=== PATIENT | female | born 1945 | race Caucasian/White ===

== ENCOUNTER 2016-05-16 12:03 | Emergency (ER) | payer OTHER ==
--- NOTE | 2016-05-16 14:17 | ED CLINICAL REPORT ---
Clinical Report - Physicians/Mid Levels [facility] [address] [place] [address] 05/16/2016 12:06 Patient: WATSON INGRAM Time Seen: 12:43. Arrived- By private vehicle. Historian- patient. CPT: ER phys charges level 3 (#804034). HISTORY OF PRESENT ILLNESS Chief Complaint: SKIN RASH and (around eyes.). 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 She did not sustain an injury. She has had eye discomfort and eye irritation. She has had eye discharge (tearing a lot). It is described as itchy. It has been located on the face (right and left periorbital). No cause has been identified. Similar symptoms previously: Recent medical care: Not recently seen/assessed. REVIEW OF SYSTEMS No fever, chills, sore throat, cough or difficulty breathing. No hoarseness, lump in throat, enlarged lymph nodes, chest pain or abdominal pain. No nausea, diarrhea, difficulty with urination or joint pain. The patient has had eye irritation. All systems otherwise negative, except as recorded above. PAST HISTORY Impetigo. Cancer. . ADDITIONAL SURGERIES: Back Surgery. Carpal Tunnel Surgery. Dilatation & Curettage. Knee Surgery. Tubal Ligation. Medications: None. Allergies: Penicillins. SOCIAL HISTORY Light tobacco smoker (cigarette)- less than 1/2 a pack per day. Occasional alcohol use. History of occasional drug use: marijuana. ADDITIONAL NOTES The nursing notes have been reviewed. PHYSICAL EXAM Vital Signs: 05/16/2016 12:17 BP: 185/82. HR: 73. RR: 20. O2 saturation: 98%. Temp: 98.3 F. Pain level now: 5/10. Appearance: Alert. No acute distress. Eyes: Pupils equal, round and reactive to light. Rt Eye: Eyelid erythema. Lt Eye: Eyelid erythema. ENT: Ears normal. Nose normal. Pharynx normal. Neck: Neck supple. CVS: Normal heart rate and rhythm. Heart sounds normal. Respiratory: No respiratory distress. Breath sounds normal. Chest nontender. No wheezes. Abdomen: Nontender. Skin: Skin warm. Normal skin color. No tender indurated area. No cellulitis. The rash is erythematous. Rash present on the face (periorbital over both eyes symmetrically. Scaly dry skin that is erythematous). Extremities: Normal external inspection. Extremities nontender. Neuro: Oriented X 3. PROGRESS AND PROCEDURES Course of Care: Rash most consistent with a contact dermatitis. Patient/family counseled. Disposition: Discharged. Condition: stable. CLINICAL IMPRESSION Moderate allergic and irritative contact dermatitis (unknown). INSTRUCTIONS Warnings: Further evaluation is necessary. GENERAL WARNINGS: Return or contact your physician immediately if your condition worsens or changes unexpectedly, if not improving as expected, or if other problems arise. Prescription Medications: Hydrocortisone 2.5% ointment: apply to affected areas four times daily as needed for itching or rash, until symptoms improve. Dispense thirty (30) grams. No refills. OTC Medications: Benadryl (available over the counter): take according to label instructions. Follow-up: Follow up with your doctor in one week. Call for an appointment. (Electronically signed by Thad King MD 05/19/2016 10:28)
--- NOTE | 2016-05-16 14:17 | ED CLINICAL REPORT ---
Clinical Report - Physicians/Mid Levels [facility] [address] [place] [address] 05/16/2016 12:06 Patient: WATSON INGRAM Time Seen: 12:43. Arrived- By private vehicle. Historian- patient. CPT: ER phys charges level 3 (#[id number]). HISTORY OF PRESENT ILLNESS Chief Complaint: SKIN RASH and (around eyes.). 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 She did not sustain an injury. She has had eye discomfort and eye irritation. She has had eye discharge (tearing a lot). It is described as itchy. It has been located on the face (right and left periorbital). No cause has been identified. Similar symptoms previously: Recent medical care: Not recently seen/assessed. REVIEW OF SYSTEMS No fever, chills, sore throat, cough or difficulty breathing. No hoarseness, lump in throat, enlarged lymph nodes, chest pain or abdominal pain. No nausea, diarrhea, difficulty with urination or joint pain. The patient has had eye irritation. All systems otherwise negative, except as recorded above. PAST HISTORY Impetigo. Cancer. . ADDITIONAL SURGERIES: Back Surgery. Carpal Tunnel Surgery. Dilatation & Curettage. Knee Surgery. Tubal Ligation. Medications: None. Allergies: Penicillins. SOCIAL HISTORY Light tobacco smoker (cigarette)- less than 1/2 a pack per day. Occasional alcohol use. History of occasional drug use: marijuana. ADDITIONAL NOTES The nursing notes have been reviewed. PHYSICAL EXAM Vital Signs: 05/16/2016 12:17 BP: 185/82. HR: 73. RR: 20. O2 saturation: 98%. Temp: 98.3 F. Pain level now: 5/10. Appearance: Alert. No acute distress. Eyes: Pupils equal, round and reactive to light. Rt Eye: Eyelid erythema. Lt Eye: Eyelid erythema. ENT: Ears normal. Nose normal. Pharynx normal. Neck: Neck supple. CVS: Normal heart rate and rhythm. Heart sounds normal. Respiratory: No respiratory distress. Breath sounds normal. Chest nontender. No wheezes. Abdomen: Nontender. Skin: Skin warm. Normal skin color. No tender indurated area. No cellulitis. The rash is erythematous. Rash present on the face (periorbital over both eyes symmetrically. Scaly dry skin that is erythematous). Extremities: Normal external inspection. Extremities nontender. Neuro: Oriented X 3. PROGRESS AND PROCEDURES Course of Care: Rash most consistent with a contact dermatitis. Patient/family counseled. Disposition: Discharged. Condition: stable. CLINICAL IMPRESSION Moderate allergic and irritative contact dermatitis (unknown). INSTRUCTIONS Warnings: Further evaluation is necessary. GENERAL WARNINGS: Return or contact your physician immediately if your condition worsens or changes unexpectedly, if not improving as expected, or if other problems arise. Prescription Medications: Hydrocortisone 2.5% ointment: apply to affected areas four times daily as needed for itching or rash, until symptoms improve. Dispense thirty (30) grams. No refills. OTC Medications: Benadryl (available over the counter): take according to label instructions. Follow-up: Follow up with your doctor in one week. Call for an appointment. (Electronically signed by Thad King MD 05/19/2016 10:28)
--- NOTE | 2016-05-16 14:17 | ED NURSING NOTES ---
Clinical Report - Nurses [facility] [address] [place] [address] 05/16/2016 12:06 Patient: WATSON INGRAM TRIAGE Triage time 12:17. Acuity: LEVEL 3. Chief Complaint: REDNESS TO RIGHT EYE. REDNESS TO LEFT EYE. (both eyes itchy.). Alert. No acute distress. SEPSIS SCREEN: Sepsis Screen: negative. Negative (no infection suspected/documented). --12:28 Natacha Agudelo R.N. 12:17 05/16/16. BP: 185/82. HR: 73. RR: 20. O2 saturation: 98% on room air. Temp: 98.3 F. Pain level now: 07/16. --12:28 Natacha Agudelo R.N. Weight: 86.1 kg stated. Height/Length: 69 inches Per Patient. BMI: 28.1. --12:27 Natacha Agudelo R.N. Medications None. --14:41 Natacha Agudelo R.N. Medication/allergy information source: the patient. --12:28 Natacha Agudelo R.N. Allergies Penicillins. --14:41 Natacha Agudelo R.N. History Arrived by private vehicle. Historian: patient. Primary physician ( in [facility]). Onset. (2 weeks ago). She did not sustain an injury. She has had eye discomfort and eye irritation. She has had eye discharge (tearing a lot). 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 PAST MEDICAL HX: Immunizations: status is unknown. The patient is post-menopausal. SOCIAL HX: Light tobacco smoker (cigarette)- less than 1/2 a pack per day. Occasional alcohol use. History of drug use: marijuana. FALL RISK ASSESSMENT: Fall risk assessment completed. No fall risk identified. NUTRITIONAL RISK ASSESSMENT: The nutritional risk assessment revealed no deficiencies. FUNCTIONAL ASSESSMENT: Functional assessment: no impairments noted. LEARNING NEEDS ASSESSMENT: The learning needs assessment revealed no barriers. SKIN INTEGRITY ASSESSMENT: Skin integrity risk assessment completed. No skin integrity risk identified. --12:28 Natacha Agudelo R.N. PROBLEMS: Impetigo. Cancer. --12:25 Natacha Agudelo R.N. ADDITIONAL SURGERIES: Back Surgery. Carpal Tunnel Surgery. Dilatation & Curettage. Knee Surgery. Tubal Ligation. --12:25 Natacha Agudelo R.N. Interventions ID band on patient. To room. --12:28 Natacha Agudelo R.N. PHYSICAL ASSESSMENT Ambulatory to room. Patient gowned. GENERAL / NEURO / PSYCH: Alert. Appears in pain and anxious. HEENT: ( eyes red and itchy). RESPIRATORY: Respirations not labored. CVS: Capillary refill less than 2 seconds. SKIN: Skin is warm and dry. ( lower lids red and swollen). --12:29 Natacha Agudelo R.N. NURSING PROGRESS NOTES Patient gowned. Head of bed elevated. Two patient identifiers checked. Call light placed in reach. Side rails up x 1. Bed placed in lowest position. Brakes of bed on. Patient ready for evaluation. --12:29 Natacha Agudelo R.N. DISPOSITION / DISCHARGE 14:30. Condition at departure: improved. No learning barriers present. Discharge instructions provided and reviewed with the patient. Reviewed medication(s) side effects, precautions, dosing and course information. Prescription(s) given to the patient. Patient verbalized understanding. Written instructions provided in Japanese. The patient was discharged home and accompanied by cash specialist. She left the Emergency Department ambulatory and via private vehicle. Contracts Intern driving. Medication list reviewed and validated. --14:41 Natacha Agudelo R.N. 14:38 05/16/16. BP: 175/83. HR: 76. RR: 20. O2 saturation: 100%. Temp: deferred. Pain level now: 03/18. 12:17 05/16/16. BP: 185/82. HR: 73. RR: 20. O2 saturation: 98% on room air. Temp: 98.3 F. Pain level now: 07/16. --14:41 Natacha Agudelo R.N. Locked/Released at 05/16/2016 14:42 by Natacha Agudelo R.N.
--- NOTE | 2016-05-16 14:17 | ED NURSING NOTES ---
Clinical Report - Nurses [facility] [address] [place] [address] 05/16/2016 12:06 Patient: WATSON INGRAM TRIAGE Triage time 12:17. Acuity: LEVEL 3. Chief Complaint: REDNESS TO RIGHT EYE. REDNESS TO LEFT EYE. (both eyes itchy.). Alert. No acute distress. SEPSIS SCREEN: Sepsis Screen: negative. Negative (no infection suspected/documented). --12:28 Natacha Agudelo R.N. 12:17 05/16/16. BP: 185/82. HR: 73. RR: 20. O2 saturation: 98% on room air. Temp: 98.3 F. Pain level now: 07/16. --12:28 Natacha Agudelo R.N. Weight: 86.1 kg stated. Height/Length: 69 inches Per Patient. BMI: 28.1. --12:27 Natacha Agudelo R.N. Medications None. --14:41 Natacha Agudelo R.N. Medication/allergy information source: the patient. --12:28 Natacha Agudelo R.N. Allergies Penicillins. --14:41 Natacha Agudelo R.N. History Arrived by private vehicle. Historian: patient. Primary physician ( in [facility]). Onset. (2 weeks ago). She did not sustain an injury. She has had eye discomfort and eye irritation. She has had eye discharge (tearing a lot). 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 PAST MEDICAL HX: Immunizations: status is unknown. The patient is post-menopausal. SOCIAL HX: Light tobacco smoker (cigarette)- less than 1/2 a pack per day. Occasional alcohol use. History of drug use: marijuana. FALL RISK ASSESSMENT: Fall risk assessment completed. No fall risk identified. NUTRITIONAL RISK ASSESSMENT: The nutritional risk assessment revealed no deficiencies. FUNCTIONAL ASSESSMENT: Functional assessment: no impairments noted. LEARNING NEEDS ASSESSMENT: The learning needs assessment revealed no barriers. SKIN INTEGRITY ASSESSMENT: Skin integrity risk assessment completed. No skin integrity risk identified. --12:28 Natacha Agudelo R.N. PROBLEMS: Impetigo. Cancer. --12:25 Natacha Agudelo R.N. ADDITIONAL SURGERIES: Back Surgery. Carpal Tunnel Surgery. Dilatation & Curettage. Knee Surgery. Tubal Ligation. --12:25 Natacha Agudelo R.N. Interventions ID band on patient. To room. --12:28 Natacha Agudelo R.N. PHYSICAL ASSESSMENT Ambulatory to room. Patient gowned. GENERAL / NEURO / PSYCH: Alert. Appears in pain and anxious. HEENT: ( eyes red and itchy). RESPIRATORY: Respirations not labored. CVS: Capillary refill less than 2 seconds. SKIN: Skin is warm and dry. ( lower lids red and swollen). --12:29 Natacha Agudelo R.N. NURSING PROGRESS NOTES Patient gowned. Head of bed elevated. Two patient identifiers checked. Call light placed in reach. Side rails up x 1. Bed placed in lowest position. Brakes of bed on. Patient ready for evaluation. --12:29 Natacha Agudelo R.N. DISPOSITION / DISCHARGE 14:30. Condition at departure: improved. No learning barriers present. Discharge instructions provided and reviewed with the patient. Reviewed medication(s) side effects, precautions, dosing and course information. Prescription(s) given to the patient. Patient verbalized understanding. Written instructions provided in Albanian. The patient was discharged home and accompanied by channel lip wetter. She left the Emergency Department ambulatory and via private vehicle. Supervisor Plastics driving. Medication list reviewed and validated. --14:41 Natacha Agudelo R.N. 14:38 05/16/16. BP: 175/83. HR: 76. RR: 20. O2 saturation: 100%. Temp: deferred. Pain level now: 03/18. 12:17 05/16/16. BP: 185/82. HR: 73. RR: 20. O2 saturation: 98% on room air. Temp: 98.3 F. Pain level now: 07/16. --14:41 Natacha Agudelo R.N. Locked/Released at 05/16/2016 14:42 by Natacha Agudelo R.N.
--- NOTE | 2016-05-19 10:28 | ED MED RECONCILIATION SUMMARY ---
Patient: WATSON INGRAM Medication Reconciliation Report [facility] VisitID: [id number] [address] [place] [address] 70y, F Registration Date/Time: 05/16/2016 Weight: 86.1 kg Height/Length: 69 in. BMI: 28.1 ALLERGIES: Penicillins The patient's Home Medications are listed below: NONE. The source(s) of the original Home Medication information: patient The following Medications were given to the patient in the Emergency Department: None. The following Medications were prescribed to the patient: Benadryl (available over the counter): take according to label instructions. -- Thad King MD Hydrocortisone 2.5% ointment: apply to affected areas four times daily as needed for itching or rash, until symptoms improve. Dispense thirty (30) grams. No refills. -- Thad King MD
--- NOTE | 2016-05-19 10:28 | ED MED RECONCILIATION SUMMARY ---
Patient: WATSON INGRAM Medication Reconciliation Report [facility] VisitID: [id number] [address] [place] [address] 70y, F Registration Date/Time: 05/16/2016 Weight: 86.1 kg Height/Length: 69 in. BMI: 28.1 ALLERGIES: Penicillins The patient's Home Medications are listed below: NONE. The source(s) of the original Home Medication information: patient The following Medications were given to the patient in the Emergency Department: None. The following Medications were prescribed to the patient: Benadryl (available over the counter): take according to label instructions. -- Thad King MD Hydrocortisone 2.5% ointment: apply to affected areas four times daily as needed for itching or rash, until symptoms improve. Dispense thirty (30) grams. No refills. -- Thad King MD
--- NOTE | 2016-05-19 10:28 | ED DISCHARGE INSTRUCTIONS ---
Patient: WATSON INGRAM General Instructions [facility] VisitID: [id number] [place] [address] 70y, F Registration Date/Time: 05/16/2016 Moderate allergic and irritative contact dermatitis (unknown). INSTRUCTIONS Warnings: Further evaluation is necessary. GENERAL WARNINGS: Return or contact your physician immediately if your condition worsens or changes unexpectedly, if not improving as expected, or if other problems arise. Prescription Medications: Hydrocortisone 2.5% ointment: apply to affected areas four times daily as needed for itching or rash, until symptoms improve. Dispense thirty (30) grams. No refills. OTC Medications: Benadryl (available over the counter): take according to label instructions. Follow-up: Follow up with your doctor in one week. Call for an appointment. (Electronically signed by Thad King MD 05/19/2016 10:28)
--- NOTE | 2016-05-19 10:28 | ED DISCHARGE INSTRUCTIONS ---
Patient: WATSON INGRAM General Instructions [facility] VisitID: [id number] [place] [address] 70y, F Registration Date/Time: 05/16/2016 Moderate allergic and irritative contact dermatitis (unknown). INSTRUCTIONS Warnings: Further evaluation is necessary. GENERAL WARNINGS: Return or contact your physician immediately if your condition worsens or changes unexpectedly, if not improving as expected, or if other problems arise. Prescription Medications: Hydrocortisone 2.5% ointment: apply to affected areas four times daily as needed for itching or rash, until symptoms improve. Dispense thirty (30) grams. No refills. OTC Medications: Benadryl (available over the counter): take according to label instructions. Follow-up: Follow up with your doctor in one week. Call for an appointment. (Electronically signed by Thad King MD 05/19/2016 10:28)
--- NOTE | 2016-05-19 10:28 | ED MAR SUMMARY ---
..... Medication Administration Record [facility] [address] [place], [place] [id number] Patient: WATSON INGRAM Visit ID: [id number] 70y, F Weight: 86.1 kg Height/Length: 69 in BMI: 28.1 ALLERGIES: Penicillins
--- NOTE | 2016-05-19 10:28 | ED MAR SUMMARY ---
..... Medication Administration Record [facility] [address] [place] [place], [place] [id number] Patient: WATSON INGRAM Visit ID: [id number] 70y, F Weight: 86.1 kg Height/Length: 69 in BMI: 28.1 ALLERGIES: Penicillins
== END 2016-05-16 14:30 | disposition home or self-care (01) ==
LOC: ED SRH 12:03
DX: L25.9 Unspecified contact dermatitis, unspecified cause (principal); F17.210 Nicotine dependence, cigarettes, uncomplicated; Z88.0 Allergy status to penicillin